=== PATIENT | female | born 1960 | race Caucasian/White ===

== ENCOUNTER → 2016-09-18 | Outpatient (CLI) | payer BC ==
[~2016-09-18] MED LIST: CENTRUM1 TAB PO; METRONIDAZOLE500 MG PO; NORCO PO; PERCOCET 325 MG1 TAB PO; PHENERGAN 25 TA25 MG PO; PREMARIN0.625 MG PO; TYLENOL 500MG500 MG PO; VICODIN 5/5001 UDTAB PO; ZITHROMAX 250M250 MG PO
== END ==
LOC: MC.RAD 09:20
DX: Z12.31 Encounter for screening mammogram for malignant neoplasm of breast (principal)

== ENCOUNTER 2018-03-16 17:12 | Emergency (ER) | payer BC ==
[2008-06-22 05:58] VITALS: BP 125/80
[~2018-03-16] VITALS: Ht 167.6 cm; Wt 79.5 kg
[2018-03-16 17:14] VITALS: BP 144/105; TEMP 99
[2018-03-16 18:22] VITALS: PULSE 111
== END 2018-03-16 18:24 | disposition home or self-care (01) ==
LOC: COL.ER 17:12
DX: S91.011A Laceration without foreign body, right ankle, initial encounter (principal); F17.210 Nicotine dependence, cigarettes, uncomplicated; W26.0XXA Contact with knife, initial encounter

== ENCOUNTER 2018-03-31 09:37 | Emergency (ER) | payer BC ==
[2018-03-31 10:00] VITALS: PULSE 89
== END 2018-03-31 10:03 | disposition home or self-care (01) ==
LOC: COL.ER 09:37
DX: S91.011D Laceration without foreign body, right ankle, subsequent encounter (principal)

== ENCOUNTER → 2018-10-07 | Outpatient (CLI) | payer BC | LOC: COL.RAD 12:53 | DX: M79.89 Other specified soft tissue disorders (principal) ==

== ENCOUNTER → 2018-10-16 | Outpatient (CLI) | payer BC | LOC: MC.RAD 07:29 | DX: Z12.31 Encounter for screening mammogram for malignant neoplasm of breast (principal) ==

== ENCOUNTER → 2019-05-11 | Outpatient (CLI) | payer BC | LOC: COL.RAD 09:44 | DX: M25.552 Pain in left hip (principal) | CPT/HCPCS: J3301; Q9967 ==

== ENCOUNTER → 2020-03-03 | Outpatient (CLI) | payer BC | LOC: MC.RAD 10:23 | DX: N64.4 Mastodynia (principal) ==

== ENCOUNTER → 2020-05-27 | Outpatient (CLI) | payer BC | LOC: COL.RAD 11:30 | DX: M25.552 Pain in left hip (principal); Z96.642 Presence of left artificial hip joint ==

== ENCOUNTER → 2024-04-16 | Outpatient (CLI) | payer MEDICARE, OTHER ==
[~2024-04-16] MED LIST changes: +Triamcinolone 40 MG/ML 1 ML VIAL IJ SCH
== END ==
LOC: COL.RAD 08:30
DX: M53.3 Sacrococcygeal disorders, not elsewhere classified (principal)
CPT/HCPCS: J0665; J3301

== ENCOUNTER → 2024-05-27 | Outpatient (CLI) | payer MEDICARE ==
[~2024-05-27] MED LIST changes: -Triamcinolone 40 MG/ML 1 ML VIAL IJ SCH
== END ==
LOC: COL.RAD 13:42
DX: Z12.2 Encounter for screening for malignant neoplasm of respiratory organs (principal); R91.1 Solitary pulmonary nodule; F17.200 Nicotine dependence, unspecified, uncomplicated